=== PATIENT | female | born 1990 | race Caucasian/White ===

== ENCOUNTER 2019-09-10 15:29 | Emergency (ER) | payer BC, OTHER ==
[2019-09-10] MEDS ORDERED: FENTANYL CITR 100 MCG/2 ML ONE (16:33)
[2019-09-10] MEDS ORDERED: ONDANSETRON 4 MG/2 ML VIAL ONE (16:33)
[2019-09-10 16:38] LABS: Absolute Lymphocytes (CBC) 1.4 K/uL (0.7-4.9); Basophils % 0.8 % (0-1.3); Hematocrit 35.8 % (36.0-45.0); Lymphocytes % 23.5 % (15.3-44.8); RBC Red Blood Cell Count 3.91 M/uL (3.86-4.86)
[2019-09-10 16:56] LABS: Albumin 3.9 g/dL (3.4-5.0); Bilirubin Direct 0.1 mg/dL (0-0.2); Bilirubin Total 0.4 mg/dL (0.2-1.0); Potassium 3.8 mmol/L (3.5-5.1); Protein, Total 7.4 g/dL (6.4-8.2)
[2019-09-10] MEDS ORDERED: NA CHLORIDE 0.9% 1,000 ML ONE (17:05)
--- NOTE | 2019-09-10 17:24 | RAD REPORT ---
EXAM DESCRIPTION: CTAbdomen Pelvis W Contrast - 09/10/2019 5:17 pm CLINICAL HISTORY: Abdominal pain. pelvic pain COMPARISON: No comparisons TECHNIQUE: Biphasic CT imaging of the abdomen and pelvis was performed with 100 ml non-ionic IV cont rast. All CT scans are performed using dose optimization technique as appropriate and may include automated exposure control or mA/KV adjustment according to patient size. FINDINGS: The lung bases are clear. The liver, spleen, pancreas, adrenal glands and kidneys are within normal limits. No bowel obstruction, free air, free fluid or abscess. Moderate stool is retained in the colon. The a ppendix is normal. No evidence of significant lymphadenopathy. No suspicious bony findings. Mild free fluid is seen in the pelvis. IUD is present in the uterus. 6 cm cystic lesion in the right adnexa has the appearance of hemorrhagic cyst or endometrioma. Small air bubbles are present in the urinary bladder. IMPRESSION: 6 cm right adnexal lesion is present which may represent a hemorrhagic cyst or endometri donnie. Follow-up pelvic ultrasound may be of value. Small air bubbles are present in the urinary bladder, suggest correlation for the possibility of cyst itis.
--- NOTE | 2019-09-10 17:28 | RAD REPORT ---
EXAM DESCRIPTION: CT - Chest For Pe Angio - 09/10/2019 5:18 pm CLINICAL HISTORY: Chest pain. sob COMPARISON: No comparisons TECHNIQUE: CT angiogram of the pulmonary arteries was performed with MIP. All CT scans are performed using dose optimization technique as appropriate and may include automated exposure control or mA/KV adjustment according to patient size. FINDINGS: No evidence of pulmonary thromboembolism. No acute aortic finding demonstrated. The lungs are clear. No significant pericardial or pleural fluid. No concerning bony finding. IMPRESSION: No evidence of pulmonary thromboembolism. No acute lung findings.
[2019-09-10 18:18] LABS: Urine Blood NEGATIVE (NEG); Urine Glucose NEGATIVE (NEG); Urine Protein NEGATIVE (NEG); Urine pH 8.5 (5.0-7.0)
--- NOTE | 2019-09-10 18:28 | RAD REPORT ---
EXAM DESCRIPTION: US - Pelvis Complete - 09/10/2019 6:11 pm CLINICAL HISTORY: pelvic pain Pelvic pain. COMPARISON: No comparisons FINDINGS: The uterus is normal in size, shape and echotexture. The uterus measures 7.9 x 5.0 x 4.2 c m. The endometrial stripe measures 4 mm, normal. IUD is present within the endometrial canal. Both ovaries are normal in size, shape and echotexture. The right ovary measures 3.0 x 2.5 x 1.9 cm. The left ovary measures 3.9 x 2.6 x 2.5 cm. Complex 6 cm right adnexal lesion is present containing hyper and hypoechoic components. No adnexal masses. Normal Doppler blood flow was demonstrated to both ovaries. Mild free fluid is seen in the pelvis. IMPRESSION: Complex 6 cm right adnexal lesion is present.Transvaginal ultrasound or pelvic MRI would be useful for further characterization.
--- NOTE | 2019-09-10 20:08 | EDPHYS ---
Physician Documentation [facility] Name: Jyoti Bond Age: 29 yrs Sex: Female : 1990 Arrival Date: 09/10/2019 Time: 15:36 Bed 13 Private MD: ED Physician Piotr oSw HPI: 09/09 16:15 This Female presents to ER via Ambulatory with complaints of Weakness. jmm 16:15 The patient presents with pelvic pain. Onset: The symptoms/episode began/occurred jmm acutely, 1 day(s) ago. Modifying factors: The symptoms are alleviated by nothing, the symptoms are aggravated by nothing. Associated signs and symptoms: Pertinent negatives: fever, vaginal bleeding. Patient complains of pelvic pain with nausea and weakness beginning last night. Similar episode 8 years prior with ruptured ovarian cyst. . Historical: - Allergies: 15:45 No Known Allergies; ll1 - PMHx: 15:45 ovarian hematoma that ruptured.; ll1 - PSHx: 15:45 breast augmentation; ll1 - Immunization history:: Adult Immunizations up to date, Last tetanus immunization: up to date. - Social history:: Smoking status: Patient denies any tobacco usage or history of. Patient uses alcohol, only on a social basis. Patient/guardian denies using street drugs. ROS: 16:15 Constitutional: Negative for fever, chills, and weight loss, Cardiovascular: Negative jmm for chest pain, palpitations, and edema, Respiratory: Negative for shortness of breath, cough, wheezing, and pleuritic chest pain. 16:15 : Positive for pelvic pain. 16:15 All other systems are negative. Exam: 16:15 Constitutional: This is a well developed, well nourished patient who is awake, alert, jmm and in no acute distress. Head/Face: atraumatic. Eyes: EOMI, no conjunctival erythema appreciated ENT: Moist Mucus Membranes Neck: Trachea midline, Supple Chest/axilla: Normal chest wall appearance and motion. Cardiovascular: Regular rate and rhythm. No edema appreciated Respiratory: Normal respirations, no respiratory distress appreciated 16:15 Back: Normal ROM Skin: General appearance color normal MS/ Extremity: Moves all extremities, no obvious deformities appreciated, no edema noted to the lower extremities Neuro: Awake and alert, normal gait Psych: Behavior is normal, Mood is normal, Patient is cooperative and pleasant 16:15 Abdomen/GI: Inspection: abdomen appears normal, Bowel sounds: normal, Palpation: soft, mild abdominal tenderness, in the suprapubic area, right lower quadrant and left lower quadrant. Vital Signs: 15:40 BP 133 / 106; Pulse 114; Resp 17; Temp 97.5; Pulse Ox 100% ; Weight 71.21 kg; Height 5 ll1 ft. 7 in. (170.18 cm); Pain 3/10; 19:30 BP 128 / 98; Pulse 98; Resp 17; Temp 97.9; Pulse Ox 100% on R/A; vc 15:40 Body Mass Index 24.59 (71.21 kg, 170.18 cm) ll1 MDM: 16:09 Patient medically screened. [facility] 20:05 Data reviewed: vital signs, nurses notes. Counseling: I had a detailed discussion with callie the patient and/or guardian regarding: the historical points, exam findings, and any diagnostic results supporting the discharge/admit diagnosis, lab results, radiology results, the need for outpatient follow up, to return to the emergency department if symptoms worsen or persist or if there are any questions or concerns that arise at home. ED course: Patient states feeling much better. CT results were discussed with the patient along with the need to follow up with manufacturers service representative. Patient understood and agrees with the plan of care. . 09/09 16:13 Order name: Basic Metabolic Panel [facility] 09/09 16:13 Order name: CBC with Diff [facility] 09/09 16:13 Order name: Hepatic Function [facility] 09/09 16:13 Order name: Lipase [facility] 09/09 16:51 Order name: Urine Dipstick--Ancillary (enter results); Complete Time: 18:20 [facility] 09/09 16:13 Order name: US Pelvis Complete [facility] 09/09 16:51 Order name: Urine --Ancillary (enter results); Complete Time: 18:20 [facility] 09/09 16:58 Order name: CREATININE WHOLE BLOOD; Complete Time: 17:25 [facility] 09/09 16:59 Order name: Basic Metabolic Panel; Complete Time: 17:25 [facility] 09/09 16:59 Order name: Liver (Hepatic) Function; Complete Time: 17:25 [facility] 09/09 16:59 Order name: Lipase; Complete Time: 17:25 [facility] 09/09 16:59 Order name: CBC with Automated Diff; Complete Time: 17:25 [facility] 09/09 16:13 Order name: IV Saline Lock; Complete Time: 16:20 [facility] 09/09 16:13 Order name: Labs collected and sent; Complete Time: 16:20 [facility] 09/09 16:13 Order name: Urine Dipstick-Ancillary (obtain specimen); Complete Time: 16:50 [facility] 09/09 16:13 Order name: Urine Test (obtain specimen); Complete Time: 16:49 [facility] 09/09 17:13 Order name: Abdomen ; Complete Time: 17:50 [facility] 09/09 17:13 Order name: Chest For Pe Angio; Complete Time: 17:50 [facility] 09/09 17:13 Order name: Pelvis Complete; Complete Time: 18:42 ED[facility] Administered Medications: 16:40 Drug: Zofran (Ondansetron) 4 mg Route: IVP; Site: left antecubital; sv 18:30 Follow up: Response: No adverse reaction vc 16:42 Drug: fentaNYL (PF) 25 mcg Route: IVP; Site: left antecubital; sv 18:30 Follow up: Response: No adverse reaction; Pain is decreased vc 17:00 Drug: NS 0.9% 1000 ml Route: IV; Rate: 1 bolus; Site: left antecubital; hb Disposition: 09/10 07:07 Co-signature as Attending Physician, Piotr Sow MD. mh7 Disposition: 09/10/19 20:07 Discharged to Home. Impression: Abdominal and pelvic pain. - Condition is Stable. - Discharge Instructions: Pelvic Pain, Female. - Prescriptions for Ultracet 37.5- 325 mg Oral Tablet - take 1 tablet by ORAL route every 6 hours - for up to 5 days; do not exceed 8 tablets per day.; 20 tablet. Zofran 4 mg Oral Tablet - take 1 tablet by ORAL route every 12 hours As needed; 6 tablet. - Medication Reconciliation Form, Thank You Letter, Antibiotic Education, Prescription Opioid Use form. - Follow up: Private Physician; When: 2 - 3 days; Reason: Recheck today's complaints, Continuance of care, Re-evaluation by your physician. Signatures: Dispatcher [facility] Salma Suggs RN RN sv Mickail, Joel, PA PA jmm Baxter, Heather, RN RN Loraine Wahl RN RN vc Dimas Milian RN RN ll1 Piotr Sow MD MD mh7 Corrections: (The following items were deleted from the chart) 09/09 17:37 17:07 Abdomen Pelvis W Con+CT.RAD.BRZ ordered. EDMS EDMS 17:37 17:07 Chest For PE Angio+CT.RAD.BRZ ordered. EDNV EDMS 20:22 20:07 09/10/2019 20:07 Discharged to Home. Impression: Abdominal and pelvic pain. vc Condition is Stable. Forms are Medication Reconciliation Form, Thank You Letter, Antibiotic Education, Prescription Opioid Use. Follow up: Private Physician; When: 2 - 3 days; Reason: Recheck today's complaints, Continuance of care, Re-evaluation by your physician. callie
--- NOTE | 2019-09-10 20:08 | ER ---
Nurse's Notes [facility] Name: Jyoti Bond Age: 29 yrs Sex: Female : 1990 Arrival Date: 09/10/2019 Time: 15:36 Bed 13 Private MD: Diagnosis: Abdominal and pelvic pain Presentation: 09/09 15:40 Chief complaint: Patient states: Abdominal pain since last night. Today had weakness, ll1 lethargy. No fever. + SOB with severe pain. Coronavirus screen: Proceed with normal triage. Patient denies a cough. Patient denies shortness of breath or difficulty breathing. Patient denies measured and/or subjective temperature greater than 100.4F prior to today's visit. Patient denies travel on a cruise ship or to a country the [facility] currently lists as an affected area. Patient denies contact with known and/or suspected case of COVID-19. Ebola Screen: Patient denies travel to an Ebola-affected area in the 21 days before illness onset. No acute neurological deficit is noted. Pre-hospital glucose is not applicable to this patient. Initial Sepsis Screen: Does the patient meet any 2 criteria? HR > 90 bpm. Does the patient have a suspected source of infection? No. Patient's initial sepsis screen is negative. Risk Assessment: Do you want to hurt yourself or someone else? Patient reports no desire to harm self or others. Onset of symptoms was September 09, 2019. 15:40 Method Of Arrival: Ambulatory ll1 15:40 Acuity: RAMÍREZ 3 ll1 Triage Assessment: 16:15 General: Appears in no apparent distress. uncomfortable, Behavior is calm, cooperative, sv appropriate for age. Pain: Complains of pain in suprapubic area, right lower quadrant and left lower quadrant Pain currently is 3 out of 10 on a pain scale. Pain began 1 day ago. Neuro: Level of Consciousness is awake, alert, obeys commands, Oriented to person, place, time, situation, Moves all extremities. Full function Gait is steady, Speech is normal. Neuro: Reports dizziness, weakness. Respiratory: Airway is patent Respiratory effort is even, unlabored, Respiratory pattern is regular, symmetrical. GI: Abdomen is flat. GI: Reports lower abdominal pain, nausea. Derm: Skin is pink, warm \T\ dry. 18:30 General: Appears in no apparent distress. uncomfortable, ill, Behavior is calm, vc cooperative, appropriate for age. Pain: Complains of pain in left lower quadrant and right lower quadrant and suprapubic area. Stroke Activation: Symptom onset > 6 hours Physician: Stroke Attending; Name: n/a; Notified At: ; Arrived At: Physician: Chief Stroke Resident; Name: ; Notified At: ; Arrived At: Physician: Stroke Resident; Name: ; Notified At: ; Arrived At: Physician: ED Attending; Name: ; Notified At: ; Arrived At: Physician: ED Resident; Name: ; Notified At: ; Arrived At: Historical: - Allergies: 15:45 No Known Allergies; ll1 - PMHx: 15:45 ovarian hematoma that ruptured.; ll1 - PSHx: 15:45 breast augmentation; ll1 - Immunization history:: Adult Immunizations up to date, Last tetanus immunization: up to date. - Social history:: Smoking status: Patient denies any tobacco usage or history of. Patient uses alcohol, only on a social basis. Patient/guardian denies using street drugs. Screenin:30 Abuse screen: Denies threats or abuse. Nutritional screening: No deficits noted. vc Tuberculosis screening: No symptoms or risk factors identified. Fall Risk None identified. Assessment: 16:26 Reassessment: Mother Simona Bond [phone]. hb 17:00 Reassessment: Patient appears in no apparent distress at this time. Patient and/or sv family updated on plan of care and expected duration. Pain level reassessed. Patient is alert, oriented x 3, equal unlabored respirations, skin warm/dry/pink. 18:30 General: Appears in no apparent distress. uncomfortable, Behavior is calm, cooperative, vc appropriate for age. Pain: Complains of pain in left lower quadrant and right lower quadrant and suprapubic area. Neuro: Level of Consciousness is obeys commands, lethargic. Cardiovascular: Capillary refill < 3 seconds Patient's skin is warm and dry. Respiratory: Airway is patent Respiratory effort is even, unlabored, Respiratory pattern is regular, symmetrical. GI: Reports lower abdominal pain, upper abdominal pain. : Reports pain in suprapubic area lower quadrant(s). Derm: Skin temperature is warm. 19:30 Reassessment: Patient appears in no apparent distress at this time. Patient and/or vc family updated on plan of care and expected duration. Pain level reassessed. Patient is alert, oriented x 3, equal unlabored respirations, skin warm/dry/pink. Patient states symptoms have improved. Vital Signs: 15:40 BP 133 / 106; Pulse 114; Resp 17; Temp 97.5; Pulse Ox 100% ; Weight 71.21 kg; Height 5 ll1 ft. 7 in. (170.18 cm); Pain 3/10; 19:30 BP 128 / 98; Pulse 98; Resp 17; Temp 97.9; Pulse Ox 100% on R/A; vc 15:40 Body Mass Index 24.59 (71.21 kg, 170.18 cm) ll1 ED Course: 15:36 Patient arrived in ED. bp1 15:43 Triage completed. ll1 15:45 Arm band placed on. ll1 15:55 Donald Doty PA is PHCP. [facility] 15:55 Piotr Sow MD is Attending Physician. [facility] 16:03 Salma Anton RN is Primary Nurse. sv 16:10 Inserted saline lock: 20 gauge in left antecubital area, using aseptic technique. Blood sv collected. Flushed left antecubital with 5 ml normal saline. 16:38 Radiology exam delayed due to test not completed at this time. mw3 17:17 CT completed. Patient tolerated procedure well. Patient moved back from CT. mw3 17:50 Report given to Loraine ALANIS. sv 18:11 Pelvis Complete In Process Unspecified. EDMS 18:30 Report received from Salma Anton RN. vc 18:30 Patient has correct armband on for positive identification. Bed in low position. Pulse vc ox on. NIBP on. 18:47 Ultrasound completed. Patient tolerated well. Notified CUSTOMER SECURITY CLERK/PA . sg3 19:27 Primary Nurse role handed off by Salma Anton RN sv 19:29 Loraine Wahl RN is Primary Nurse. vc 20:20 No provider procedures requiring assistance completed. IV discontinued, intact, vc bleeding controlled, No redness/swelling at site. Pressure dressing applied. Administered Medications: 16:40 Drug: Zofran (Ondansetron) 4 mg Route: IVP; Site: left antecubital; sv 18:30 Follow up: Response: No adverse reaction vc 16:42 Drug: fentaNYL (PF) 25 mcg Route: IVP; Site: left antecubital; sv 18:30 Follow up: Response: No adverse reaction; Pain is decreased vc 17:00 Drug: NS 0.9% 1000 ml Route: IV; Rate: 1 bolus; Site: left antecubital; hb Outcome: 20:07 Discharge ordered by . callie 20:20 Discharged to home ambulatory. vc 20:20 Condition: improved 20:20 Discharge instructions given to patient, Instructed on discharge instructions, follow up and referral plans. medication usage, Demonstrated understanding of instructions, follow-up care, medications, Prescriptions given X 2. 20:22 Patient left the ED. vc Signatures: Dispatcher [employer] EDSalma Kaba RN RN Donald Borrego PA PA jmm Baxter, Heather RN RN Yue Irizarry sg3 Patsy Edouard mw3 Loraine Wahl RN RN vc Lewis, Lynsay, RN RN 1 Kelly Mcintosh [facility] Corrections: (The following items were deleted from the chart) 20:12 20:11 Reassessment: vc vc
[2019-09-10 20:27] VITALS: BP 133/106; TEMP 97.5; O2SAT 100
== END 2019-09-10 20:22 | disposition home or self-care (01) ==
LOC: ER 15:29
DX: R10.2 Pelvic and perineal pain (principal); Z98.82 Breast implant status
CPT/HCPCS: 85025; 80048; 36415; 81025; 82565; 80076; 81003; 83690; 71275; 74177; 76856; 96375; 96374; 99284; Q9967; J3010; J7030; J2405